=== PATIENT | male | born 1990 | race Caucasian/White ===

== ENCOUNTER 2023-12-27 09:01 | Outpatient (CLI) | payer OTHER | END 2023-12-27 23:59 | disposition home or self-care (01) | LOC: MRI 09:01 | PROVIDERS: ATTEND Family Medicine Sports Medicine | DX: S83.411A Sprain of medial collateral ligament of right knee, initial encounter (principal); M17.11 Unilateral primary osteoarthritis, right knee; M25.561 Pain in right knee; M23.303 Other meniscus derangements, unspecified medial meniscus, right knee; M23.302 Other meniscus derangements, unspecified lateral meniscus, unspecified knee; M71.21 Synovial cyst of popliteal space [Baker], right knee; X58.XXXA Exposure to other specified factors, initial encounter; Y93.89 Activity, other specified; Y92.89 Other specified places as the place of occurrence of the external cause; Y99.8 Other external cause status | CPT/HCPCS: 73721 ==